=== PATIENT | male | born 1965 | race African-American/Black ===

== ENCOUNTER 2022-08-04 09:23 | Emergency (ER) | payer OTHER ==
[2022-08-04 09:32] VITALS: BP 158/94; PULSE 100; RESP 18; TEMP 97; BMI 29.0
[2022-08-04] MEDS ORDERED: IBUPROFEN 600 MG TABLET (FP) PO ONE ×2 (10:31→10:52)
== END 2022-08-04 11:23 | disposition home or self-care (01) ==
LOC: JERFT 09:23
DX: S82.891A Other fracture of right lower leg, initial encounter for closed fracture (principal); X50.0XXA Overexertion from strenuous movement or load, initial encounter
CPT/HCPCS: 73610-TC-RT-FY; 73630-TC-RT-FY; 99283-25